=== PATIENT | female | born 1975 | race Caucasian/White ===

== ENCOUNTER → 2020-11-10 | Outpatient (CLI) | payer BC ==
[~2020-11-10] MED LIST: ASPI1TAB31 PO; CETI10TA74 PO; FERR220S16 PO; GADOTERATE 7.5 MMOL/15ML VIAL. IVP ONE; LACT1CAP6 PO; PANT40TA77 PO; ZINC50TA39 PO
--- NOTE | 2020-11-10 10:31 | KCIC ---
EXAM: Brain MRI with and without contrast. HISTORY: Migraine. Dizziness. Memory loss. Concern for demyelinating disease. TECHNIQUE: Multiplanar, multisequence magnetic resonance imaging of the brain was performed prior to and following the administration of intravenous contrast. COMPARISON: None. FINDINGS: There is no restricted diffusion to suggest acute or subacute infarction. There is no susce ptibility effect to suggest hemorrhage. There is no mass effect or midline shift. There is no hydroce phalus. No suspicious white matter lesion is seen. The orbits are unremarkable. There is severe left and moderate right paranasal sinus because of thick ening. There is minimal fluid within the left mastoid air cells. There are normal flow voids within t he cerebral vessels. There is no enhancing lesion. IMPRESSION: No acute intracranial finding. No convincing evidence of demyelinating disease. Electronically signed by: Aislinn Simons MD (11/10/2020 10:28 AM) [id number]
== END ==
LOC: KCIC MRI 07:57
PROVIDERS: ATTEND Psychiatry & Neurology Neurology with Special Qualifications in Child Neurology
DX: G43.011 Migraine without aura, intractable, with status migrainosus (principal); R42 Dizziness and giddiness; R41.3 Other amnesia; R15.9 Full incontinence of feces; G44.40 Drug-induced headache, not elsewhere classified, not intractable
CPT/HCPCS: 70553; A9575